=== PATIENT | female | born 1955 | race Caucasian/White ===

== ENCOUNTER 2016-08-02 07:17 | Emergency (ER) | payer OTHER ==
[2016-08-02 07:26] VITALS: BMI 29.2
--- NOTE | 2016-08-02 07:58 | C.PDOC ---
History Of Present Illness 61 y/o female presents to the ED with complains of headache and nervousness. Pt was waiting for outpatient ECHO this morning when she was accused of taking something and was questioned by security. Afterward developed headache and felt nervous. Pt currently states headache improved. Denies numbness, weakness, vision changes, neck pain or any other complaints. Denies trauma. Time Seen by Provider: 08/02/16 07:27 Chief Complaint (Nursing): Headache History Per: Patient History/Exam Limitations: no limitations Onset/Duration Of Symptoms: Mins Current Symptoms Are (Timing): Better Severity: Mild Pain Scale Rating Of: 2 Quality: "Pain" Preceeding Symptoms: None Associated Symptoms: denies: Photophobia, Blurred Vision, Nausea, Vomiting, Extremity Weakness Recent travel outside of the [place]: No Past Medical History Reviewed: Historical Data, Nursing Documentation, Vital Signs Vital Signs: Last Vital Signs Temp 98.1 F 08/02/16 08:23 Pulse 72 08/02/16 08:23 Resp 18 08/02/16 08:23 BP 106/69 08/02/16 08:23 Pulse Ox 99 08/02/16 08:32 - Medical History PMH: CAD, HTN Surgical History: Appendectomy Family History: States: Unknown Family Hx - Social History Hx Alcohol Use: No Hx Substance Use: No - Immunization History Hx Tetanus Toxoid Vaccination: Yes Hx Influenza Vaccination: Yes Hx Pneumococcal Vaccination: No Review Of Systems Except As Marked, All Systems Reviewed And Found Negative. Constitutional: Negative for: Fever Eyes: Negative for: Vision Change Cardiovascular: Negative for: Chest Pain Respiratory: Negative for: Shortness of Breath Gastrointestinal: Negative for: Vomiting Musculoskeletal: Negative for: Neck Pain Neurological: Positive for: Headache. Negative for: Weakness, Numbness Physical Exam - Physical Exam Appears: Non-toxic, No Acute Distress Skin: Warm, Dry, No Rash Head: Atraumatic, Normacephalic Eye(s): bilateral: PERRL, EOMI Ear(s): Bilateral: Normal Oral Mucosa: Moist Throat: No Erythema, No Exudate Neck: Normal ROM, No Midline Cervical Tenderness, No Paracervical Tenderness, Supple Chest: Symmetrical, No Ecchymosis, No Subcutaneous Emphysema Cardiovascular: Rhythm Regular, No Friction Rub, No Murmur Respiratory: Normal Breath Sounds, No Rales, No Rhonchi, No Wheezing Gastrointestinal/Abdominal: Normal Exam, Soft, No Tenderness Back: Normal Inspection, No CVA Tenderness, No Vertebral Tenderness, No Paraspinal Tenderness Extremity: Normal ROM, No Tenderness, No Swelling Extremity: Bilateral: Atraumatic Neurological/Psych: Oriented x3, Normal Speech, Normal Cognition, Normal Cranial Nerves, Normal Motor, Normal Sensation Gait: Steady ED Course And Treatment O2 Sat by Pulse Oximetry: 99 (room air) Pulse Ox Interpretation: Normal Medical Decision Making Medical Decision Making: Plan: tylenol, reglan Patient has no neuro deficits and normal physical exam, there is no need for CT or other diagnostic testing at this time. On re-exam, the patient reports improvement of symptoms. Normal BP and vitals. Lungs are CTA, heart is RRR, abdomen is soft, non-tender and patient is tolerating PO well. Patient is ambulatory in the ED with steady gait. Disposition - Disposition Referrals: Darshan Young MD [Staff Provider] - Disposition: HOME/ ROUTINE Disposition Time: 08:30 Condition: GOOD Additional Instructions: Follow up with the medical doctor within 1-2 days, Return if worsened. Instructions: Acute Headache (DC) - Clinical Impression Clinical Impression: Headache, Stress - PA / SCHO[employer] PRINCIPAL / Resident Statement MD/DO has reviewed & agrees with the documentation as recorded. - Scribe Statement The provider has reviewed the documentation as recorded by the Scribmary jane Valero All medical record entries made by the Scribe were at my direction and personally dictated by me. I have reviewed the chart and agree that the record accurately reflects my personal performance of the history, physical exam, medical decision making, and the department course for this patient. I have also personally directed, reviewed, and agree with the discharge instructions and disposition.
[2016-08-02 08:23] VITALS: BP 106/69; PULSE 72; RESP 18; TEMP 98.1
[2016-08-02 08:32] VITALS: O2SAT 99
== END 2016-08-02 08:36 | disposition home or self-care (01) ==
LOC: C.ER 07:17
DX: G44.209 Tension-type headache, unspecified, not intractable (principal)